=== PATIENT | male | born 1980 | race Caucasian/White ===

== ENCOUNTER 2020-11-20 07:35 | Emergency (ER) | payer BC, OTHER ==
[~2020-11-20] VITALS: Ht 187 cm; Wt 117.0 kg
--- NOTE | 2020-11-20 07:44 | ED Chest Pain ---
General Stated Complaint: CHEST PAIN History of Present Illness Date Seen by Provider: Nov 20, 2020 Time Seen by Provider: 07:40 Initial Comments 39-year-old male presents with onset of chest pain last night 9 PM while laying in bed. Acid throughout the night and still present this morning on arrival to the ER. Pain is located left upper chest with some radiation to his left arm. Denies any similar symptoms in the past, denies any history of heart disease or lung disease. Patient with no significant past medical history, on no medications and denies any recent activity or injury that were precipitated this type of pain. Allergies and Home Medications Allergies Coded Allergies: No Known Drug Allergies (Unverified , 11/20/20) Patient Home Medication List Home Medication List Reviewed: Yes Ibuprofen (Ibuprofen) 800 Mg Tablet, 800 MG PO Q8H PRN for PAIN Prescribed by: REY VÁSQUEZ on 11/20/20 0825 Review of Systems Review of Systems Constitutional: No fever, No malaise, No weakness Respiratory: Denies Cough, Denies Shortness of Air Cardiovascular: Chest Pain; Denies Edema, Denies Lightheadedness, Denies Palpitations, Denies Syncope Gastrointestinal: Denies Abdominal Pain, Denies Nausea, Denies Poor Appetite, Denies Vomiting Musculoskeletal: No back pain, No joint pain Skin: No change in color, No rash Psychiatric/Neurological: Denies Headache, Denies Paresthesia Past [id number] Hx Patient Social History Tobacco Use?: No Physical Exam Vital Signs Vital Signs - First Documented 11/20/20 07:35 Temp 36.2 Pulse 76 Resp 18 B/P (MAP) 169/95 (119) Pulse Ox 98 O2 Delivery Room Air Capillary Refill : Height, Weight, BMI Height: '" Weight: lbs. oz. kg; BMI Method: General Appearance: No Apparent Distress, WD/WN HEENT: PERRL/EOMI, Normal ENT Inspection Neck: Non Tender, Supple Respiratory: Chest Non Tender, Lungs Clear Cardiovascular: Regular Rate, Rhythm, No Edema, No JVD Gastrointestinal: Non Tender, Soft Extremity: Normal Capillary Refill, Normal Inspection Neurologic/Psychiatric: Alert, Oriented x3 Skin: Normal Color, Warm/Dry Progress/Results/Core Measures Results/Orders Lab Results Laboratory Tests Test 11/20/20 07:45 Range/Units White Blood Count 6.7 4.3-11.0 10^3/uL Red Blood Count 5.57 H 4.30-5.52 10^6/uL Hemoglobin 17.1 13.3-17.7 g/dL Hematocrit 50 40-54 % Mean Corpuscular Volume 91 80-99 fL Mean Corpuscular Hemoglobin 31 25-34 pg Mean Corpuscular Hemoglobin Concent 34 32-36 g/dL Red Cell Distribution Width 13.5 10.0-14.5 % Platelet Count 121 L 130-400 10^3/uL Mean Platelet Volume 12.5 H 9.0-12.2 fL Immature Granulocyte % (Auto) 0 % Neutrophils (%) (Auto) 61 42-75 % Lymphocytes (%) (Auto) 26 12-44 % Monocytes (%) (Auto) 10 0-12 % Eosinophils (%) (Auto) 2 0-10 % Basophils (%) (Auto) 1 0-10 % Neutrophils # (Auto) 4.1 1.8-7.8 X 10^3 Lymphocytes # (Auto) 1.7 1.0-4.0 X 10^3 Monocytes # (Auto) 0.7 0.0-1.0 X 10^3 Eosinophils # (Auto) 0.1 0.0-0.3 10^3/uL Basophils # (Auto) 0.1 0.0-0.1 10^3/uL Immature Granulocyte # (Auto) 0.0 0.0-0.1 10^3/uL Percent Immature Platelet Fraction 10.4 H 0.0-7.6 % Sodium Level 139 135-145 MMOL/L Potassium Level 4.4 3.6-5.0 MMOL/L Chloride Level 102 98-107 MMOL/L Carbon Dioxide Level 25 21-32 MMOL/L Anion Gap 12 5-14 MMOL/L Blood Urea Nitrogen 12 7-18 MG/DL Creatinine 0.92 0.60-1.30 MG/DL Estimat Glomerular Filtration Rate 93 BUN/Creatinine Ratio 13 Glucose Level 246 H 70-105 MG/DL Calcium Level 9.3 8.5-10.1 MG/DL Corrected Calcium 8.5-10.1 MG/DL Total Bilirubin 0.5 0.1-1.0 MG/DL Aspartate Amino Transf (AST/SGOT) 75 H 5-34 U/L Alanine Aminotransferase (ALT/SGPT) 67 H 0-55 U/L Alkaline Phosphatase 113 40-136 U/L Troponin I < 0.30 <0.30 NG/ML Total Protein 7.0 6.4-8.2 GM/DL Albumin 4.6 H 3.2-4.5 GM/DL My Orders Orders - REY VÁSQUEZ DO Ed Iv/Invasive Line Start (11/20/20 07:41) Cbc With Automated Diff (11/20/20 07:41) Comprehensive Metabolic Panel (11/20/20 07:41) Troponin I Fs (11/20/20 07:41) Chest 1 View Ap/Pa Only (11/20/20 07:41) Ekg Tracing (11/20/20 07:41) Aspirin Chewable Tablet (Baby Aspirin Ch (11/20/20 08:00) Medications Given in ED Current Medications Medications Dose Ordered Sig/Dianelys Route Start Time Stop Time Status Last Admin Dose Admin Aspirin 324 mg ONCE ONCE PO 11/20/20 08:00 11/20/20 08:01 DC 11/20/20 07:59 324 MG Vital Signs/I&O 11/20/20 07:35 Temp 36.2 Pulse 76 Resp 18 B/P (MAP) 169/95 (119) Pulse Ox 98 O2 Delivery Room Air Initial ECG Impression Date: Nov 20, 2020 Initial ECG Impression Time: 07:40 Initial ECG Rate: 70 Initial ECG Rhythm: Normal Sinus Initial ECG Intervals: Normal Initial ECG Impression: Normal Diagnostic Imaging Diagonstic Imaging: Xray Plain Films/CT/US/NM/MRI: chest Comments Date of Exam:11/20/20 CHEST 1 VIEW AP/PA ONLY INDICATION: Chest pain. Frontal chest obtained at 07:35 a.m. FINDINGS: Heart and mediastinal silhouette are normal in appearance. The lungs are clear. There is no pneumothorax or pleural fluid collection. IMPRESSION: Negative chest. Dictated on workstation # [id number] Dict: 11/20/20 0752 Trans: 11/20/20 0757 [id number] Interpreted by: AURELIA COPPOLA MD Electronically signed by: Departure Impression Primary Impression: Chest pain Disposition: 01 HOME, SELF-CARE Condition: Improved Departure-Patient Inst. Decision time for Depature: 08:24 Referrals: JAZLYN ORTIZ MD (PCP/Family) Primary Care Physician BARI PEREZ JR, MD Patient Instructions: Chest Pain (DC), Chest Pain, Adult ED Add. Discharge Instructions: An appointment has been scheduled for you to see Dr Perez (Social Media Editor) in [place] TOMORROW @ 1100 Call [phone] to confirm details Scripts Ibuprofen (Ibuprofen) 800 Mg Tablet 800 MG PO Q8H PRN for PAIN, #30 TAB 0 Refills Prov: REY VÁSQUEZ DO 11/20/20 REY VÁSQUEZ DO Nov 20, 2020 07:44
[2020-11-20 07:52] LABS: HEMATOCRIT 50 % (40-54); HEMOGLOBIN 17.1 g/dL (13.3-17.7); MEAN CORPUSCULAR HEMOGLOBIN 31 pg (25-34); MEAN CORPUSCULAR HGB CONC 34 g/dL (32-36); MEAN CORPUSCULAR VOLUME 91 fL (80-99); MEAN PLATELET VOLUME 12.5 fL (9.0-12.2); PLATELET COUNT 121 10^3/uL (130-400); WHITE BLOOD COUNT 6.7 10^3/uL (4.3-11.0)
[2020-11-20 07:53] LABS: BASOPHILS # (AUTO) 0.1 10^3/uL (0.0-0.1); BASOPHILS % (AUTO) 1 % (0-10); EOSINOPHILS # (AUTO) 0.1 10^3/uL (0.0-0.3); EOSINOPHILS % (AUTO) 2 % (0-10); LYMPHOCYTES # (AUTO) 1.7 X 10^3 (1.0-4.0); LYMPHOCYTES % (AUTO) 26 % (12-44); MONOCYTES # (AUTO) 0.7 X 10^3 (0.0-1.0); MONOCYTES % (AUTO) 10 % (0-12); NEUTROPHILS # (AUTO) 4.1 X 10^3 (1.8-7.8); NEUTROPHILS % (AUTO) 61 % (42-75)
--- NOTE | 2020-11-20 07:57 | Diagnostic Imaging Report ---
INDICATION: Chest pain. Frontal chest obtained at 07:35 a.m. FINDINGS: Heart and mediastinal silhouette are normal in appearance. The lungs are clear. There is no pneumothorax or pleural fluid collection. IMPRESSION: Negative chest. Dictated by: Dictated on workstation # [id number]
[2020-11-20] MEDS ORDERED: ASPIRIN 81 MG CHEW (CHILDREN'S ASA) PO ONE (08:00)
[2020-11-20 08:15] LABS: CARBON DIOXIDE 25 MMOL/L (21-32); CHLORIDE 102 MMOL/L (98-107); POTASSIUM 4.4 MMOL/L (3.6-5.0); SODIUM 139 MMOL/L (135-145)
[2020-11-20 08:16] LABS: ALANINE AMINOTRANSFERASE 67 U/L (0-55); ALKALINE PHOSPHATASE 113 U/L (40-136); BILIRUBIN,TOTAL 0.5 MG/DL (0.1-1.0); BUN/CREATININE RATIO 13; CALCIUM 9.3 MG/DL (8.5-10.1); CREATININE SERUM 0.92 MG/DL (0.60-1.30); GFR ESTIMATED 93; GLUCOSE 246 MG/DL (70-105)
[2020-11-20 08:18] LABS: ALBUMIN 4.6 GM/DL (3.2-4.5)
[2020-11-20] MEDS ORDERED: IBUP-1780 PO (08:25)
[2020-11-20 08:32] VITALS: BP 169/95
== END 2020-11-20 08:33 | disposition home or self-care (01) ==
LOC: ER FS 07:37
DX: R07.9 Chest pain, unspecified (principal)
CPT/HCPCS: 36415; 71045; 80053; 84484; 85025; 93005

== ENCOUNTER → 2022-10-04 | Outpatient (CLI) | payer BC ==
[~2022-10-04] MED LIST: IBUP-1780 PO
== END ==
LOC: CARD 08:34
PROVIDERS: ATTEND Internal Medicine Cardiovascular Disease
DX: I10 Essential (primary) hypertension (principal); I25.10 Atherosclerotic heart disease of native coronary artery without angina pectoris
CPT/HCPCS: 93306

== ENCOUNTER → 2022-11-24 | Outpatient (CLI) | payer BC ==
[2022-11-24 13:02] VITALS: BP 131/78
--- NOTE | 2022-11-25 08:47 | Cardiology Stress Test Report ---
Stress Test Report Date of Procedure/Referring: Date of Procedure: Nov 24, 2022 PCP Jazlyn Finnegan MD Admitting Physician Admitting Physician: Attending Physician: Zulma Delong MD Baseline Heart Rate: 60 Baseline Blood Pressure: Blood Pressure Systolic: 131 Blood Pressure Diastolic: 78 Baseline EKG: Baseline EKG: NSR Summary/Conclusion: Summary: In summary, the patient started exercising with a baseline heart rate, blood pressure and EKG mentioned above Patient was able to exercise for a total of 9.30 minutes on Joni protocol, METs 11.1 Maximum heart rate 175 Maximum blood pressure 179/82 Stress EKG, Minimal nondiagnostic changes Recovery EKG , Return to baseline Conclusion: 1. Good exercise tolerance for a total of 9.30 minutes on Joni protocol, 11.1 METs, achieving 96 percent of maximum expected heart rate 2. Minimal nondiagnostic EKG changes with exercise returned to baseline during recovery 3. No arrhythmia was noted Copy Copies To 1: JAZLYN FINNEGAN MD, BASHAR J MD Nov 25, 2022 08:47
== END ==
LOC: CARD 11:37
PROVIDERS: ATTEND Internal Medicine Cardiovascular Disease
DX: R07.9 Chest pain, unspecified (principal); R00.2 Palpitations
CPT/HCPCS: 93017